=== PATIENT | male | born 1950 | race Caucasian/White ===

== ENCOUNTER 2017-04-12 00:04 | Day surgery (SDC) | payer MEDICARE ==
[~2017-04-12] VITALS: Ht 190.5 cm; Wt 119.0 kg
[2017-04-12] VITALS (11 sets, daily range): BP systolic 85–115; BP diastolic 52–71; PULSE 62–75; RESP 16–17; O2SAT 95–98
[~2017-04-12 00:04] MED LIST: CARV12.5 PO; INSU100C8 SUBQ; INSU100V7 SUBQ; LIRA0.6P SQ; LISI10TA PO; METF500T4 PO; NITR25CA PO
[2017-04-12] MEDS ORDERED: 0.9% Sodium Chloride 1,000 ML IV ONE (08:00)
[2017-04-12] MEDS ORDERED: Heparin 1,000 Units/500 mL NS Premix IV ONE (08:28)
[2017-04-12] MEDS ORDERED: 0.9% Sodium Chloride 50 ML ONE (08:28)
[2017-04-12] MEDS ORDERED: Heparin 10,000 Unit/1,000 mL NS Premix IV ONE (08:29)
[2017-04-12 09:46] LABS: BASOPHILS % (AUTO) 1.6 % (0-3); EOSINOPHILS % (AUTO) 5.4 % (0-5); MONOCYTES % (AUTO) 11.4 % (4-12); Mean Corpuscular Volume 83.1 fL (81-100); Platelet Count 297 bil/L (150-400)
[2017-04-12] MEDS ORDERED: fentaNYL-PF 50 mCg/mL 2 mL Inj ONE (10:40)
[2017-04-12] MEDS ORDERED: Ondansetron 2 mg/mL 2 mL Inj ONE (11:18)
[2017-04-12] MEDS ORDERED: Heparin 1,000 Unit/mL 10 mL Inj ONE (11:34)
[2017-04-12] MEDS ORDERED: 0.9% Sodium Chloride 1,000 ML IV PRN (12:12)
[2017-04-12] MEDS ORDERED: 0.9% Sodium Chloride 250 ML IV PRN (12:12)
[2017-04-12] MEDS ORDERED: Ondansetron 2 mg/mL 2 mL Inj IVPUSH PRN (12:15)
[2017-04-12] MEDS ORDERED: Atropine 1 mg/10 mL (Code) Syringe IVPUSH PRN (12:15)
[2017-04-12] MEDS ORDERED: HYDROcodone-APAP 5-325 mg Tablet PO PRN (12:15)
--- NOTE | 2017-04-12 15:21 | NUR ---
Pt discharged to home, ambulatory, with [facility]dom[facility] and call ride service. Pt's VSS, Rt groin puncture site CDI with no bleeding/hematoma noted. Pt given all discharge instructions and had no further questions at time of d/c.
--- NOTE | 2017-04-13 10:43 | CS94 ---
[address] [address] DIAGNOSTIC CARDIAC CATHETERIZATION PATIENT: KATHRYN ALVAREZ : 1950 MR#: [id number] ADMIT: 04/12/2017 JOB ID: [id number] SERVICE DATE: 04/13/2017 INDICATION: Cardiomyopathy. CONSENT: The patient was explained the risks, benefits, and alternatives of the procedure. PROCEDURE: 1. Retrograde left heart catheterization. 2. Selective left and right coronary angiography. 3. Right heart catheterization. CONSENT: Patient was explained the risks, benefits, alternatives of procedure. Informed signed consent was obtained and placed in the chart. DESCRIPTION OF PROCEDURE: The patient was brought to the cath laboratory and placed on the cath table. Both groins were prepped and draped in the usual sterile manner. The procedure sedation was administered by the nurse present in the cath laboratory. The patient was monitored during the entire course of the procedure. Please refer to the event log for exact sequence of multiple procedures performed. Lidocaine 1% was infiltrated in the right groin area. Using a modified Seldinger technique, a 6-Cuban arterial sheath was placed in the right femoral artery. In a similar fashion, an 8-Cuban venous sheath was placed in the right femoral vein with no difficulties. A [place]-Mumtaz catheter was advanced under direct fluoroscopy into the right femoral vein. The catheter was advanced into the right pulmonary artery. The balloon was inflated, and pulmonary artery occlusive pressures as well as saturations were obtained. In a sequential manner, PA saturations and pressures were obtained. Cardiac output by thermodilution method was obtained as well. RV pressures and oxygen saturations were obtained in standard manner. Subsequently, the balloon tip was deflated and was withdrawn. The FL4 catheter was used to engage the left anterior descending artery, and multiple views of the left anterior descending artery were obtained in multiple projections. The left circumflex has a separate ostium. It is a small diminutive size which traverses into the AV groove. The FR4 catheter was used to engage the right coronary artery. Multiple views of the right coronary artery were obtained in multiple projections. The LV-gram was not performed. However, LV hemodynamics was obtained. The left ventricular end-diastolic pressure was significantly elevated. Therefore, left ventricular cineangiography was not performed. Complications were none. Patient was taken out of the cath laboratory in stable condition. Fluoro time was 4.8 minutes and total contrast used 55 cc. FINDINGS: Right heart catheterization: The pulmonary capillary wedge pressure was 7 mmHg. PA pressure was 17 mmHg. The cardiac index by thermodilution method was 2.9, and cardiac output by MARIO method was 3.15 L/minute per m square. The RV pressure was 33/3, and the RA pressure was zero. The aortic pressure was 107/60. The LV pressure was 107/13. The left ventricular end-diastolic pressure was 26-30 with an average of 28 mmHg. The oxygen RA oxygen saturation was 72%, RV 68%, PA 68%. Pulmonary capillary oxygen saturation was 93%, and arterial oxygen saturation was 95%. Coronary angiography: The left anterior descending artery and left circumflex coronary artery have separate ostia. The left anterior descending artery has diffuse luminal irregularities with prominent calcification noted in the mid segment after the ramus intermedius branch. Septal perforators are noted arising from the LAD. The diagonal branches demonstrate no significant disease. The ramus intermedius arising from the LAD has a focal discrete stenosis of 60% to 70% followed by luminal irregularities in the mid segment. The distal segment is free of any significant disease. The left circumflex coronary artery is a small caliber vessel which traverses into the AV groove. The first obtuse marginal branch is small size in caliber. The right coronary artery is diffusely calcified in the proximal mid and distal segments. There are segments of tubular stenosis in the proximal mid and distal segments. The tubular stenosis is 30% to 40% in severity in the proximal segment. In the mid segment, it is again 40% to 50%, and the distal segment again 40% to 50%. It gives off a posterolateral in the PDA branch. IMPRESSION: 1. Diffuse calcification noted in the left anterior descending and right coronary arteries with mild to moderate disease noted in the left anterior descending and right coronary artery. 2. Ramus intermedius has moderate to severe stenosis in the proximal segment of 70% or so. 3. Hemodynamics: Severely elevated left ventricular end-diastolic pressure. 4. No evidence of intracardiac shunt. 5. Normal right-sided pressures. 6. Reduced cardiac output by thermodilution method and MARIO method. [facility]
== END 2017-04-12 23:59 | disposition home or self-care (01) ==
LOC: SOUO 00:04
PROVIDERS: ATTEND Internal Medicine Cardiovascular Disease
DX: I25.10 Atherosclerotic heart disease of native coronary artery without angina pectoris (principal); I44.7 Left bundle-branch block, unspecified; E11.9 Type 2 diabetes mellitus without complications; Z79.4 Long term (current) use of insulin; Z79.84 Long term (current) use of oral hypoglycemic drugs; N35.9 Urethral stricture, unspecified; I42.8 Other cardiomyopathies
CPT/HCPCS: 36415; 80048; 85025; 85610; 93005; 93460; 99152; 99153; C1760; C1769; J1644; J2250; J3010; J7030; Q9967

== ENCOUNTER 2017-04-23 00:29 | Day surgery (SDC) | payer MEDICARE ==
[~2017-04-23] VITALS: Ht 190.5 cm; Wt 115.9 kg
[2017-04-23] VITALS (17 sets, daily range): BP systolic 103–135; BP diastolic 60–87; PULSE 72–86; RESP 14–20; O2SAT 92–95
[2017-04-23] MEDS: 0.9% Sodium Chloride 1,000 ML IV SCH ×2 (09:30→17:38)
[2017-04-23 09:44] LABS: BASOPHILS % (AUTO) 0.4 % (0-3); EOSINOPHILS % (AUTO) 1.5 % (0-5); MONOCYTES % (AUTO) 6.9 % (4-12); Mean Corpuscular Volume 83.9 fL (81-100); NEUTROPHILS % (AUTO) 76.8 % (40-74); Platelet Count 360 bil/L (150-400)
[2017-04-23] MEDS ORDERED: Heparin 10,000 Unit/1,000 mL NS Premix IV ONE (09:54)
[2017-04-23] MEDS ORDERED: Heparin 1,000 Units/500 mL NS Premix IV ONE (09:54)
--- NOTE | 2017-04-23 10:03 | NUR ---
Admitted for a planned PCI following a diagnostic heart cath - Pt understands procedure - permit to be signed by Dr Cage. NSR upon admit with no chest pain/pressure. Appears fatigued.
[2017-04-23] MEDS ORDERED: Adenosine 3 mg/mL 2 mL Inj ONE (11:04)
[2017-04-23] MEDS ORDERED: 0.9% Sodium Chloride 250 ML ONE (11:04)
[2017-04-23] MEDS ORDERED: fentaNYL-PF 50 mCg/mL 2 mL Inj ONE (11:09)
[2017-04-23] MEDS ORDERED: Nitroglycerin 50,000 mcg/250 mL D5W Premix IV ONE (11:17)
[2017-04-23] MEDS ORDERED: Heparin 1,000 Unit/mL 10 mL Inj ONE (11:19)
[2017-04-23] MEDS ORDERED: Alum-Mag Hydrox-Simeth 30 mL Suspension ONE (12:32)
--- NOTE | 2017-04-23 13:39 | DI95 ---
[address] [address] INTERVENTIONAL CARDIAC CATHETERIZATION PATIENT: KATHRYN ALVAREZ : 1950 MR#: [id number] ADMIT: 04/23/2017 JOB ID: [id number] DATE: 04/23/2017 PROCEDURE: Percutaneous intervention on the first major diagonal. INDICATION: LV dysfunction. PROCEDURAL DETAILS: The reader and the coders are referred to the procedure log in which these are enumerated. Briefly this gentleman underwent percutaneous intervention via right femoral approach using a 6-Albanian Voda guide. INTERVENTIONAL DETAILS: This gentleman has heavily calcified lesion in his proximal diagonal. This is about a 2.5 mm vessel. An FFR wire was placed in this diagonal. The FFR was 0.72 when IFR was 0.46, thereby indicating that this lesion was very significant. We initially dilated with a 2.0 balloon with this, and then tried to stent it but the stent would not cross. Hence we had to balloon angioplasty multiple times initially with a 2.0 noncompliant and then with a 2.5 noncompliant balloon. Finally we had to use a sulma wire in the form a balanced heavy weight and we were able to deliver the stent. The stent was dilated at 15 atmospheres. Further inflation was then done in the ostium of this diagonal. Final angiographic results were excellent. In summary, successful FFR guided intervention on the diagonal with a 2.5 x 18 mm Xience drug-coated stent delivered at 15 atmospheres. The patient is advised to stay on dual antiplatelet therapy for at least six months post procedure.
--- NOTE | 2017-04-23 13:49 | CONS ---
[address] [address] CONSULTATION REPORT PATIENT: KATHRYN ALVAREZ : 1950 MR#: [id number] ADMIT: 04/23/2017 JOB ID: [id number] DATE OF SERVICE: CHIEF COMPLAINT: PCI in a patient with known coronary artery disease. REFERRED BY: Dr. Vences. HISTORY OF PRESENT ILLNESS: This 66-year-old gentleman recently underwent angiography with Dr. Vences. He was found to have a lesion in his 1st major diagonal branch. There was borderline lesion in his distal RCA. The patient has history of severe LV dysfunction with EF of around 25%. The patient denies any chest discomfort, chest pressure. He has been complaining of marked reduction in his exercise tolerance. The patient has history of urethral strictures and he was supposed to undergo urethral procedure. The patient preferred to have his cardiac stenting prior to any urological surgery. He understands that this might delay his surgery. I discussed this with the patient. My office staff also contacted his urologist. Apparently, the patient's surgery is not critical and can wait. PAST MEDICAL HISTORY: Significant for ischemic and nonischemic cardiomyopathy. He has chronic left bundle branch block. He has history of diabetes. He has a solitary kidney. 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 MEDICATIONS AT HOME: Coreg, insulin, metformin, Victoza. ALLERGIES: None. REVIEW OF SYSTEMS: Comprehensive review of system was done. Negative for any GI or bleeding. No strokes. Negative for any fever, chills. No hematological problems. FAMILY HISTORY: Noncontributory. PERSONAL HISTORY: Denies any alcohol or drug abuse. EXAMINATION: Comfortable, lying flat. No distress. Neck supple. No JVD. Chest: Clear. Heart sounds S1, S2 are regular. No gallops. No murmurs. Abdomen is soft. No organomegaly. Extremities: Negative for CCE. Good distal pulses. MATHEMATICAL SCIENTIST: Alert and oriented. EKG: Left bundle-branch block. LABS: Reviewed. Creatinine is 1. ASSESSMENT AND PLAN: This gentleman has both ischemic and nonischemic cardiomyopathy. I will do an FFR guided intervention on his diagonal. This is a large-caliber diagonal. Following that, his medications need to be optimized which can be done through Dr. Vences's office. If his LV function does not improve, he will be a candidate for a biventricular AICD. Thank you for letting me be involved in his care. Risks, benefits, and alternatives were explained to the patient. He signed consent and is willing to proceed.
--- NOTE | 2017-04-23 16:42 | NUR ---
Arrived 1445 - Telephone report taken from DESHAWN Whitt in the [facility] department. 1550 - He arrived from [facility] to [facility] 2029 and was settled into the room. He had a flat affect, only answered questions with a word or two, said he was really tired, and kept his eyes closed most of the time even when being spoken to. Finished his assessment and vitals and then showed him how to order his own dinner. Asked him to call the first time he needs to get up so staff could ensure he is steady on his feet following his procedure. Denied pain. Turned off the lights and left the room allowing him to sleep for awhile. Care continues. Addendum: 04/23/17 at 1825 by ЕЛЕНА ZUNIGA RN 1734 - Took his blood glucose which was 233. Informed him that he would receive Lispro insulin to correct his blood glucose level. He said that he didn't want to take that. He wanted to take his normal home NovoLog. Called the Pharmacy and spoke to Britton who said that our Pharmacy does not carry NovoLog and instead substitutes it for Lispro. Informed the patient of this and he said he would take the Lispro. Gave it to him. Care continues. Addendum: 04/23/17 at 1921 by ЕЛЕНА ZUNIGA RN 1854 - Noted that on his paper medication req that Dr. Cage had filled out his SubQ Victoza was not continued into his eMAR. Called Pharmacy and spoke to Pharmacist Britton who said that first of all, the pharmacy does not carry that medication and secondly, there is an increased risk of hypoglycemia from this particular medication. He said typically it is held until the patient discharges home and since the pt is discharging in the morning he can resume it tomorrow. Care continues.
[2017-04-23] MEDS: Insulin LISPRO Medium-Dose Scale SUBQ SCH ×2 (17:58→21:19)
[2017-04-23] MEDS ORDERED: Insulin GLARgine 100 Unit/mL Syringe SUBQ SCH (21:00)
--- NOTE | 2017-04-24 03:19 | NUR ---
Blood sugar/Tele/groin-site HS blood sugar check: 197.no sliding scale, gave 25 units Lantus, Rt groin puncture site CDI,no S/S swelling ,bleedinf ,induration Saline locked x 2 , room air, Telemetry: SR 78 IVCD
[2017-04-24] MEDS: 0.9% Sodium Chloride 1,000 ML IV SCH (04:15)
[2017-04-24 04:30] VITALS: BP 108/57; PULSE 69; RESP 18; O2SAT 93
[2017-04-24 09:45] VITALS: BP 114/74; PULSE 77; RESP 16; O2SAT 94
[2017-04-24] MEDS: Insulin LISPRO Medium-Dose Scale SUBQ SCH ×2 (10:24→11:42)
--- NOTE | 2017-04-24 11:22 | NUR ---
Right Groin/Discharge Pt denies pain on palpation, no signs of bleeding or hematoma. Pt states he would like to leave [facility] as he has an appointment in [place] at 1500 with urologist. paged. Care continues.
[2017-04-24 11:31] VITALS: PULSE 74
[2017-04-24] MEDS ORDERED: CLOP75TA28 PO (11:41)
--- NOTE | 2017-04-24 11:41 | PCM.DIMED ---
Discharge Instructions Date of Service April 24, 2017 Dates of Hospitalization 04/23/2017 Discharge Diagnosis Discharge Diagnosis Elective PCI of the LAD Diet Discharge Diet: Heart Healthy Activity Discharge Activity: Other (Do not lift more than 5 pounds of one week) Patient Instructions Provider: Juan Vences MD Follow-up in: 2 weeks Rose Mary Giles MD April 24, 2017 11:41
[2017-04-24 12:01] VITALS: BP 107/69; PULSE 66; RESP 18; O2SAT 96
--- NOTE | 2017-04-24 13:43 | NUR ---
Discharge Pt discharged at approximately 1315 to home. Pt given educational material for Clopidogrel, Stent booklet, new prescription, next dose to be taken for all medications clearly written and dated. Follow up appt scheduled. Pt acknowledged and understood all material. Pt IVs DC'd with catheter intact, tele DC'd director of digital technology notified. Pt left with all personal belongings. Escorted by STRUCTURAL ENGINEERING PROJECT MANAGER to door.
== END 2017-04-24 13:00 | disposition home or self-care (01) ==
LOC: SOUO 00:29 → PCC 16:27 → SOUO 04-24 13:00
PROVIDERS: ATTEND Internal Medicine Cardiovascular Disease
DX: I25.10 Atherosclerotic heart disease of native coronary artery without angina pectoris (principal); I25.84 Coronary atherosclerosis due to calcified coronary lesion; I42.8 Other cardiomyopathies; I25.5 Ischemic cardiomyopathy; I44.7 Left bundle-branch block, unspecified; E11.9 Type 2 diabetes mellitus without complications; N35.9 Urethral stricture, unspecified; Z85.528 Personal history of other malignant neoplasm of kidney; Z90.5 Acquired absence of kidney; Z79.84 Long term (current) use of oral hypoglycemic drugs; Z79.4 Long term (current) use of insulin
CPT/HCPCS: 36415; 80048; 85025; 93005; 93571; 99152; 99153; C1725; C1760; C1769; C1874; C1887; C9600; J0153; J1200; J1644; J1815; J2060; J2250; J3010; J7030; J7050; Q9967